=== PATIENT | male | born 2000 | race Two or more races ===

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

== ENCOUNTER → 2021-01-06 | Outpatient (CLI) | payer OTHER ==
--- NOTE | 2021-01-06 10:55 | XR ---
Right hand HISTORY: Trauma and pain, S60.221A 3 views of the right hand Bone mineralization, joint spaces and alignment are maintained. Lateral exam not optimally positioned . IMPRESSION: No fracture or dislocation.
== END | disposition home or self-care (01) ==
LOC: RADXRMAIN 10:33
PROVIDERS: ATTEND Emergency Medicine
DX: M79.641 Pain in right hand (principal)

== ENCOUNTER 2023-03-07 12:41 | Emergency (ER) | payer OTHER ==
[2023-03-07] MEDS ORDERED: ACET/COD 300 MG/30 MG STARTER PACK 6 TAB BTL PO STA (13:03)
--- NOTE | 2023-03-07 13:04 | ED ---
General Adult HPI - General Chief complaint: Skin/Abscess/Foreign Body Stated complaint: L wrist infection Time Seen by Provider: 03/07/23 13:03 Source: patient, RN notes reviewed Mode of arrival: ambulatory Limitations: no limitations - History of Present Illness Initial comments: 22-year-old male presents emergency Department chief complaint of left wrist infection. Patient states is not IV drug user states that it started a few days ago. Patient denies any fevers or chills states is very sore at the site states that occasionally drains. He is unsure of the started. - Related Data Previous Rx's Medication Instructions Recorded Cephalexin [Keflex] 500 mg PO Q6HR #28 cap 03/07/23 Sulfamethox-Tmp 800-160Mg [Bactrim 1 each PO Q12HR #20 tab 03/07/23 Ds] Allergies Allergy/AdvReac Type Severity Reaction Status Date / Time No Known Allergies Allergy Verified 03/07/23 12:57 Review of Systems ROS Statement: Those systems with pertinent positive or pertinent negative responses have been documented in the HPI. ROS Other: All systems not noted in ROS Statement are negative. Past Medical History Past Medical History: No Reported History History of Any Multi-Drug Resistant Organisms: None Reported Past Surgical History: No Surgical Hx Reported Past Psychological History: Unable to Obtain Past Alcohol Use History: Daily Past Drug Use History: Unable to Obtain General Exam Limitations: no limitations General appearance: alert, in no apparent distress Head exam: Present: atraumatic, normocephalic, normal inspection Neck exam: Present: normal inspection. Absent: tenderness, meningismus, lymphadenopathy Respiratory exam: Present: normal lung sounds bilaterally. Absent: respiratory distress, wheezes, rales, rhonchi, stridor Cardiovascular Exam: Present: regular rate, normal rhythm, normal heart sounds. Absent: systolic murmur, diastolic murmur, rubs, gallop, clicks Extremities exam: Present: other (Left wrist there is a small abscess on flexion, there is some current drainage with small opening. No erythema streaking to the left axilla or antecubital fossa region) Course Vital Signs 03/07/23 12:55 Temperature 98.3 F Pulse Rate 75 Respiratory 16 Rate Blood Pressure 129/78 O2 Sat by Pulse 97 Oximetry Medical Decision Making - Medical Decision Making Was pt. sent in by a medical professional or institution (, [place], [facility], urgent care, hospital, or [facility]...) When possible be specific @ -No Did you speak to anyone other than the patient for history (EMS, parent, family, police, friend...)? What history was obtained from this source @ -No Did you review nursing and triage notes (agree or disagree)? Why? @ -I reviewed and agree with nursing and triage notes Were old charts reviewed (outside hosp., previous admission, EMS record, old EKG, old radiological studies, urgent care reports/EKG's, [facility] records)? Report findings @ -No old charts were reviewed Differential Diagnosis (chest pain, altered mental status, abdominal pain women, abdominal pain men, vaginal bleeding, weakness, fever, dyspnea, syncope, headache, dizziness, GI bleed, back pain, seizure, CVA, palpatations, mental health, musculoskeletal)? @ -Left wrist abscess, cellulitis EKG interpreted by me (3pts min.). @ -None X-rays interpreted by me (1pt min.). @ -None done CT interpreted by me (1pt min.). @ -None done U/S interpreted by me (1pt. min.). @ -None done What testing was considered but not performed or refused? (CT, X-rays, U/S, labs)? Why? @ -None What meds were considered but not given or refused? Why? @ -None Did you discuss the management of the patient with other professionals (professionals i.e. MELISSA Roque, [employer], lab, RT, psych nurse, school social worker, swat team member, teacher, gift officer, hospice case manager)? Give summary @ -No Was smoking cessation discussed for >3mins.? @ -No Was critical care preformed (if so, how long)? @ -No Were there social determinants of health that impacted care today? How? (Homelessness, low income, unemployed, alcoholism, drug addiction, transportation, low edu. Level, literacy, decrease access to med. care, residential, rehab)? @ -No Was there de-escalation of care discussed even if they declined (Discuss DNR or withdrawal of care, Hospice)? DNR status @ -No What co-morbidities impacted this encounter? (DM, HTN, Smoking, COPD, CAD, Cancer, CVA, ARF, Chemo, Hep., AIDS, mental health diagnosis, sleep apnea, morbid obesity)? @ -None Was patient admitted / discharged? Hospital course, mention meds given and route, prescriptions, significant lab abnormalities, going to OR and other pertinent info. @ -Discharge patient has left wrist cellulitis, early abscess patient was prescribed Bactrim, Keflex I did receive a phone call from pharmacy after medications are sent seen that he was seen in outside facility received similar medications along with [place]. Patient was here requesting pain meds I did advise patient that he should take medications as directed and that he currently has pain meds or not receive any further pain meds other than ibuprofen from the emergency department. Undiagnosed new problem with uncertain prognosis? @ -No Drug Therapy requiring intensive monitoring for toxicity (Heparin, Nitro, Insulin, Cardizem)? @ -No Were any procedures done? @ -No Diagnosis/symptom? @ -[Left wrist cellulitis Acute, or Chronic, or Acute on Chronic? @ -Acute Uncomplicated (without systemic symptoms) or Complicated (systemic symptoms)? @ -Uncomplicated Side effects of treatment? @ -No Exacerbation, Progression, or Severe Exacerbation? @ -No Poses a threat to life or bodily function? How? (Chest pain, [place], [place], pneumonia, PE, COPD, DKA, ARF, appy, cholecystitis, CVA, Diverticulitis, Homicidal, Suicidal, threat to staff... and all critical care pts) @ -No Disposition Clinical Impression: Cellulitis of left wrist Disposition: HOME SELF-CARE Condition: Stable Instructions (If sedation given, give patient instructions): Cellulitis (ED) Additional Instructions: Please return to the Emergency Department if symptoms worsen or any other concerns. Prescriptions: Sulfamethox-Tmp 800-160Mg [Bactrim Ds] 1 each PO Q12HR #20 tab Cephalexin [Keflex] 500 mg PO Q6HR #28 cap Is patient prescribed a controlled substance at d/c from ED?: No Referrals: None,Stated [Primary Care Provider] - 1-2 days Time of Disposition: 13:04
[2023-03-07 13:10] VITALS: BP 129/78; PULSE 75; RESP 16; TEMP 98.3
[2023-03-07] MEDS ORDERED: IBUPROFEN 600 MG STARTER PACK 4 TAB BTL PO STA (13:17)
== END 2023-03-07 13:30 | disposition home or self-care (01) ==
LOC: EC 12:41
DX: L08.9 Local infection of the skin and subcutaneous tissue, unspecified (principal); F10.20 Alcohol dependence, uncomplicated
CPT/HCPCS: 99282

== ENCOUNTER 2024-09-28 20:03 | Emergency (ER) | payer OTHER ==
[2024-09-28 20:31] VITALS: BP 156/104; PULSE 62; RESP 18; TEMP 97.1
--- NOTE | 2024-09-28 20:35 | ED ---
ENT HPI - General Chief complaint: Dental/Oral Stated complaint: Tooth Pain Time Seen by Provider: 09/28/24 20:30 Source: patient, RN notes reviewed Mode of arrival: ambulatory Limitations: no limitations - History of Present Illness Initial comments: This is a 24-year-old male who presents to the emergency department for left lower dental pain. States that he has a broken tooth and today the tooth broke even more, causing worsening pain. He has tried [id number] medication including ibuprofen, Tylenol, and Orajel without much relief. Denies any fevers or chills. MD complaint: tooth pain - Related Data Previous Rx's Medication Instructions Recorded Cephalexin [Keflex] 500 mg PO Q6HR #28 cap 03/07/23 Sulfamethox-Tmp 800-160Mg [Bactrim 1 each PO Q12HR #20 tab 03/07/23 Ds] Amoxic-Pot Clav 875-125Mg 1 tab PO Q12HR 10 Days #20 tab 09/28/24 [Augmentin 875-125] Ketorolac [Toradol] 10 mg PO Q6HR PRN #15 tab 09/28/24 Allergies Allergy/AdvReac Type Severity Reaction Status Date / Time No Known Allergies Allergy Verified 09/28/24 20:30 Review of Systems ROS Statement: Those systems with pertinent positive or pertinent negative responses have been documented in the HPI. ROS Other: All systems not noted in ROS Statement are negative. Past Medical History Past Medical History: No Reported History History of Any Multi-Drug Resistant Organisms: None Reported Past Surgical History: No Surgical Hx Reported Past Psychological History: Unable to Obtain Smoking Status: Vaper Past Alcohol Use History: Daily Past Drug Use History: Marijuana General Exam Limitations: no limitations General appearance: alert, in no apparent distress Head exam: Present: atraumatic, normocephalic, normal inspection ENT exam: Present: other (Molar on the left lower jaw is chipped. Mild fullness along the left lower jawline. No palpable abscess. No elevation of the tongue or swelling to the floor of the mouth.) Respiratory exam: Present: normal lung sounds bilaterally. Absent: respiratory distress, wheezes, rales, rhonchi, stridor Cardiovascular Exam: Present: regular rate, normal rhythm Neurological exam: Present: alert, oriented X3, CN II-XII intact Psychiatric exam: Present: normal affect, normal mood Skin exam: Present: warm, dry, intact, normal color. Absent: rash Course Vital Signs 09/28/24 20:28 Temperature 97.1 F L Pulse Rate 62 Respiratory 18 Rate Blood Pressure 156/104 O2 Sat by Pulse 98 Oximetry Medical Decision Making - Medical Decision Making This is a 24 year old male who presents to the emergency department for dental pain. Was pt. sent in by a medical professional or institution? @ -No Did you speak to anyone other than the patient for history? @ -No Did you review nursing and triage notes? @ -Yes, and I agree, it is accurate with regards to the patient's symptoms. Were old charts reviewed? @ -No Differential Diagnosis? @ -Differential Dental Pain Dental abscess, chipped tooth, dental carries, medardo's angina, trigeminal neuralgia, this is not meant to be an all-inclusive list. EKG interpreted by me (3pts min.)? @ -Not obtained X-rays interpreted by me (1pt min.)? @ -Not obtained CT interpreted by me (1pt min.)? @ -Not obtained U/S interpreted by me (1pt. min.)? @ -Not obtained What testing was considered but not performed? (CT, X-rays, U/S, labs)? Why? @ -None What meds were considered but not given? Why? @ -None Did you discuss the management of the patient with other professionals? @ -No Did you reconcile home meds? @ -No Was smoking cessation discussed for >3mins.? @ -I discussed smoking cessation for greater than 3 minutes. The risk of smoking were discussed with the patient including but not limited to risks of cancer, stroke, coronary artery disease and COPD. Also discussed with patient were multiple methods of quitting smoking. Lastly we discussed the financial cost of smoking. Was critical care preformed (if so, how long)? @ -No Were there social determinants of health that impacted care today? How? (Homelessness, low income, unemployed, alcoholism, drug addiction, transportation, low edu. Level, literacy, decrease access to med. care, senior care, rehab)? @ -No Was there de-escalation of care discussed even if they declined? (Discuss DNR or withdrawal of care, Hospice)? @ -No What co-morbidities impacted this encounter? (DM, HTN, Smoking, COPD, CAD, Cancer, CVA, Hep., AIDS, mental health diagnosis, sleep apnea, morbid obesity)? @ -Smoking Was patient admitted / discharged? @ -Discharged. Patient had a broken tooth on exam, which I advised is likely the main cause of his pain, especially if there is an exposed nerve. However, given that there was mild fullness along the jaw, advised that we will treat him for a potential associated infection as well. Augmentin and Toradol prescribed. Pain was treated in the emergency department. Advised that he could try something like [id number] clove oil as well, however he needs to follow-up with a dentist for definitive management. Patient discharged home in stable condition. Case discussed with ED attending Dr. Cruz. Return precautions reviewed in depth, the patient is instructed to return to the emergency department with any new, worsening, or concerning symptoms. Patient verbalized understanding. Undiagnosed new problem with uncertain prognosis? @ -None Drug Therapy requiring intensive monitoring for toxicity (Heparin, Nitro, Insulin, Cardizem)? @ -None Were any procedures done? @ -None Diagnosis/symptom? @ -Dental infection, chipped tooth Acute, or Chronic, or Acute on Chronic? @ -Acute Uncomplicated (without systemic symptoms) or Complicated (systemic symptoms)? @ -Uncomplicated Side effects of treatment? @ -None Exacerbation, Progression, or Severe Exacerbation] @ -Not applicable Poses a threat to life or bodily function? @ -No Disposition Clinical Impression: Pain, dental, Dental infection, Nicotine dependence Disposition: HOME SELF-CARE Instructions (If sedation given, give patient instructions): Toothache (ED) Additional Instructions: Return to the emergency department with any new, worsening, or concerning symptoms. Take the antibiotic as prescribed for 10 days. Take the Toradol with Tylenol as needed for pain relief. If you choose to take the Toradol, do not take any other anti-inflammatories such as ibuprofen, take one or the other. You can also try something like topical clove oil. You will need to follow-up with a dentist for definitive management, as these solutions are only temporary. Prescriptions: Amoxic-Pot Clav 875-125Mg [Augmentin 875-125] 1 tab PO Q12HR 10 Days #20 tab Ketorolac [Toradol] 10 mg PO Q6HR PRN #15 tab PRN Reason: Pain Is patient prescribed a controlled substance at d/c from ED?: No Referrals: None,Stated [Primary Care Provider] - 1-2 days Time of Disposition: 20:35
[2024-09-28] MEDS: ACET/COD 300 MG/30 MG STARTER PACK 6 TAB BTL PO STA (22:03)
[2024-09-28] MEDS: MORPHINE SULFATE 4 MG/ML SYRINGE IM STA (22:04)
[2024-09-28] MEDS: KETOROLAC 15 MG/ML 1 ML VIAL IM STA (22:04)
[2024-09-28] MEDS: dexAMETHasone 2 MG TAB PO STA (22:04)
[2024-09-28] MEDS: AMOXIC-POT CLAV 875-125MG 1 EACH TAB PO STA (22:05)
== END 2024-09-28 22:24 | disposition home or self-care (01) ==
LOC: EC 20:03
DX: K04.7 Periapical abscess without sinus (principal); F17.290 Nicotine dependence, other tobacco product, uncomplicated
CPT/HCPCS: 99282; 96372 ×2; J2270; J8540; J1885

== ENCOUNTER 2024-10-20 14:21 | Emergency (ER) | payer OTHER ==
[2024-10-20 14:24] VITALS: BP 109/72; PULSE 83; RESP 16; TEMP 98.4
--- NOTE | 2024-10-20 15:03 | ED ---
Upper Extremity HPI - General Chief Complaint: Extremity Injury, Upper Stated Complaint: L thumb pain Time Seen by Provider: 10/20/24 15:03 Source: patient, RN notes reviewed Mode of arrival: ambulatory Limitations: no limitations - History of Present Illness Initial Comments: 24-year-old male presented the ER for evaluation of right hand injury. Patient reports approximately 1 week ago he punched a wall. He states since then he has been endorsing pain and swelling with limited range of motion to right thumb. He is reporting most of his pain over MCP joint. He has not taken anything for pain at this time. No paresthesias. Patient denies any other injuries or complaints. - Related Data Previous Rx's Medication Instructions Recorded Cephalexin [Keflex] 500 mg PO Q6HR #28 cap 03/07/23 Sulfamethox-Tmp 800-160Mg [Bactrim 1 each PO Q12HR #20 tab 03/07/23 Ds] Amoxic-Pot Clav 875-125Mg 1 tab PO Q12HR 10 Days #20 tab 09/28/24 [Augmentin 875-125] Ketorolac [Toradol] 10 mg PO Q6HR PRN #15 tab 09/28/24 Allergies Allergy/AdvReac Type Severity Reaction Status Date / Time No Known Allergies Allergy Verified 10/20/24 14:24 Review of Systems ROS Statement: Those systems with pertinent positive or pertinent negative responses have been documented in the HPI. ROS Other: All systems not noted in ROS Statement are negative. Past Medical History Past Medical History: No Reported History History of Any Multi-Drug Resistant Organisms: None Reported Past Surgical History: No Surgical Hx Reported Past Psychological History: Unable to Obtain Smoking Status: Vaper Past Alcohol Use History: Daily Past Drug Use History: Marijuana General Exam Limitations: no limitations General appearance: alert, in no apparent distress Course Vital Signs 10/20/24 14:21 Temperature 98.4 F Pulse Rate 83 Respiratory 16 Rate Blood Pressure 109/72 O2 Sat by Pulse 97 Oximetry Procedures - Orthopedic Splinting/Casting Injury #1 Side: right Upper Extremity Injury Location: hand Upper Extremity Immobilizer: thumb spica Medical Decision Making - Medical Decision Making Was pt. sent in by a medical professional or institution (, PA, SHARE HOLDER, urgent care, hospital, or [place] [facility] facility...) When possible be specific @ -[No] Did you speak to anyone other than the patient for history (EMS, parent, family, police, friend...)? What history was obtained from this source @ -[No] Did you review nursing and triage notes (agree or disagree)? Why? @ -[I reviewed and agree with nursing and triage notes] Were old charts reviewed (outside hosp., previous admission, EMS record, old EKG, old radiological studies, urgent care reports/EKG's, [place] [facility] facility records)? Report findings @ -[No old charts were reviewed] Differential Diagnosis (chest pain, altered mental status, abdominal pain women, abdominal pain men, vaginal bleeding, weakness, fever, dyspnea, syncope, headache, dizziness, GI bleed, back pain, seizure, CVA, palpatations, mental health, musculoskeletal)? @ -Differential Musculoskeletal: Muscular strain, contusion, ligament sprain, fracture, arthritis, septic arthritis, bursitis, cellulitis, muscle spasm, nerve compression, DVT, arterial occlusion, herpes zoster, electrolyte abnormality, tumor.... This is not meant to be in all inclusive list EKG interpreted by me (3pts min.). @ -[None done] X-rays interpreted by me (1pt min.). @ -Right hand x-ray interpreted by me remarkable for acute fracture to the base of right first digit proximal phalanx. CT interpreted by me (1pt min.). @ -[None done] U/S interpreted by me (1pt. min.). @ -[None done] What testing was considered but not performed or refused? (CT, X-rays, U/S, labs)? Why? @ -[None] What meds were considered but not given or refused? Why? @ -[None] Did you discuss the management of the patient with other professionals (professionals i.e. , PA, SHARE HOLDER, lab, RT, psych nurse, social media manager, customer liaison, teacher, community liaison officer, home health care case manager)? Give summary @ -[No] Was smoking cessation discussed for >3mins.? @ -[No] Was critical care preformed (if so, how long)? @ -[No] Were there social determinants of health that impacted care today? How? (Homelessness, low income, unemployed, alcoholism, drug addiction, transportation, low edu. Level, literacy, decrease access to med. care, care home, r ehab)? @ -[No] Was there de-escalation of care discussed even if they declined (Discuss DNR or withdrawal of care, Hospice)? DNR status @ -[No] What co-morbidities impacted this encounter? (DM, HTN, Smoking, COPD, CAD, Cancer, CVA, ARF, Chemo, Hep., AIDS, mental health diagnosis, sleep apnea, morbid obesity)? @ -[None] Was patient admitted / discharged? Hospital course, mention meds given and r oute, prescriptions, significant lab abnormalities, going to OR and other pertinent info. @ -Discharge. 24-year-old male presented the ER for evaluation of right hand injury. Undiagnosed new problem with uncertain prognosis? @ -[No] Drug Therapy requiring intensive monitoring for toxicity (Heparin, Nitro, Insulin, Cardizem)? @ -[No] Were any procedures done? @ -[No] Diagnosis/symptom? @ -[default] Acute, or Chronic, or Acute on Chronic? @ -[default] Uncomplicated (without systemic symptoms) or Complicated (systemic symptoms)? @ -[default] Side effects of treatment? @ -[No] Exacerbation, Progression, or Severe Exacerbation? @ -[No] Poses a threat to life or bodily function? How? (Chest pain, [place], [place], pneumonia, PE, COPD, DKA, ARF, appy, cholecystitis, CVA, Diverticulitis, Homicidal, Suicidal, threat to staff... and all critical care pts) @ -[No] Disposition Clinical Impression: Proximal phalanx fracture of finger Disposition: HOME SELF-CARE Condition: Stable Instructions (If sedation given, give patient instructions): Finger Fracture (ED) Additional Instructions: Keep splint in place until follow-up with orthopedics. You may take [id number] ibuprofen and Tylenol for pain control. Return to the ER for any new or worsening concerns. Is patient prescribed a controlled substance at d/c from ED?: No Referrals: None,Stated [Primary Care Provider] - 1-2 days Petros Ellis MD [Medical Doctor] - 1-2 days Time of Disposition: 15:22
--- NOTE | 2024-10-20 15:10 | XR ---
EXAMINATION TYPE: XR hand complete RT DATE OF EXAM: 10/20/2024 2:43 PM COMPARISON: None CLINICAL INDICATION: Male, 24 years old with history of pain; PHH, pain TECHNIQUE: XR hand complete RT 3 views were obtained. FINDINGS: There is acute fracture with rotatory displacement of the first digit proximal phalanx base . IMPRESSION: Acute fracture the base of the first digit proximal phalanx with intra-articular extension and rotate d displacement up to 4 mm. [facility], , 10/20/2024 3:07 PM
[2024-10-20] MEDS: IBUPROFEN 600 MG TAB PO STA (15:23)
== END 2024-10-20 15:25 | disposition home or self-care (01) ==
LOC: EC 14:21
DX: S62.511A Displaced fracture of proximal phalanx of right thumb, initial encounter for closed fracture (principal); F17.290 Nicotine dependence, other tobacco product, uncomplicated; W22.01XA Walked into wall, initial encounter
CPT/HCPCS: 29125; 99283

== ENCOUNTER 2024-10-28 14:04 | Day surgery (SDC) | payer OTHER ==
[2024-10-28] MEDS: IV FLUID CONTINUATION 1,000 ML IV ONE (12:29)
[~2024-10-28 14:04] MED LIST: HYDROmorphone 0.5 MG/0.5 ML SYRINGE IVP PRN; LIDOCAINE 1% (10MG/ML) FOR IV START INTRADERMA PRN
[2024-10-28 14:26] VITALS: TEMP 98.1
[2024-10-28] MEDS: LACTATED RINGERS 1,000 ML IV SCH (14:32)
[2024-10-28] MEDS: ONDANSETRON 4 MG/2 ML VIAL IVP ONE (14:33)
[2024-10-28] MEDS ORDERED: PROPOFOL 10 MG/ML 20 ML VIAL IV ONE (14:38)
[2024-10-28] MEDS ORDERED: MIDAZOLAM 2 MG/2 ML VIAL ONE (14:38)
[2024-10-28] MEDS ORDERED: GLYCOPYRROLATE 0.2 MG/ML 2 ML VIAL ONE (14:38)
[2024-10-28] MEDS ORDERED: LIDOCAINE 1% INJ 10MG/ML (20 ML MDV) ONE (14:38)
[2024-10-28] MEDS ORDERED: fentaNYL (PF) 50 MCG/ML 2 ML AMP ONE (14:38)
[2024-10-28] MEDS ORDERED: KETOROLAC 15 MG/ML 1 ML VIAL ONE (14:38)
[2024-10-28] MEDS: LIDOCAINE 2%-EPI 1:100,000 20 ML VIAL SQ ONE ×2 (15:14→15:50)
[2024-10-28] MEDS: BUPIVACAINE (PF) 0.5% 30 ML VIAL SQ ONE ×2 (15:14→15:50)
[2024-10-28 16:39] VITALS: RESP 16
[2024-10-28 17:17] VITALS: PULSE 76
[2024-10-28 17:35] VITALS: BP 110/67
--- NOTE | 2024-10-29 22:22 | P.OP ---
Date of Procedure: 10/28/24 Preoperative Diagnosis: Right thumb proximal phalanx fracture Postoperative Diagnosis: same Procedure(s) Performed: Right thumb open reduction internal fixation Implants: Arthrex nanocorkscrew Anesthesia: GUILLERMINA local Surgeon: Eva Heredia Estimated Blood Loss (ml): 1 Pathology: none sent Condition: stable Disposition: PACU Indications for Procedure: Patient punched something on 10/15/24 and sustained a fracture of the ulnar base of the proximal phalanx. It is quite displaced on the XR and there is no end feel. It looks as though there is interposed tissue and a bony stener lesion. We have decided to proceed with an ORIF. Operative Findings: Interposed tissue beneath the fracture fragment and attachment of UCL ligament Description of Procedure: The patient, operative extremity, and procedure were identified in the preoperative holding area. After informed consent was obtained, the patient was then brought back to the operating room where a local block was performed with lidocaine with epinephrine and 0.5% marcaine. The extremity was then prepped and draped in normal sterile fashion. A formal timeout was performed and the tourniquet was inflated. A curvilinear incision was made over the ulnar side of the MCP joint. Dissection was carried through the subcutaneus tissue to the extensor brooks. The ulnar side was sharply released from the FPL tendon with a cuff for repair. Dissection towards the joint revealed the fracture fragment over the adductor aponeurosis. The aponeurosis was partially released to access the joint. The fracture side was cleaned and reduced. The fragment was too small for direct fixation with a screw and the decision was made to use an anchor and a suture to capture the piece. A nanocorkscrew was inserted into the fracture and the fiberwire ends were used to secure the piece and the UCL attachment. The MCP joint was tested and there was a good end point. The wound was irrigated. The extensor brooks was repaired with 3.0 vycril. The skin was closed with 4.0 monocryl, skin glue, and steristrips. The thumb was splinted in a thumb spica splint.
== END 2024-10-28 17:45 | disposition home or self-care (01) ==
LOC: OR 14:04
PROVIDERS: ATTEND Orthopaedic Surgery Hand Surgery
DX: S62.511A Displaced fracture of proximal phalanx of right thumb, initial encounter for closed fracture (principal); F17.290 Nicotine dependence, other tobacco product, uncomplicated; X58.XXXA Exposure to other specified factors, initial encounter
CPT/HCPCS: 26735; C1713; J2250; J0690; J2405; J2003; J3010; J1885; J2704; J0665; J1596